=== PATIENT | female | born 1965 | race Caucasian/White ===

== ENCOUNTER 2017-03-01 13:25 | Outpatient (CLI) | payer OTHER ==
[~2017-03-01] VITALS: Ht 152.4 cm; Wt 70.0 kg
[2017-03-01 13:45] VITALS: Ht 152.4 cm; Wt 70.0 kg
[2017-03-01 13:46] VITALS: BP 120/66; PULSE 77; RESP 16
--- NOTE | 2017-03-01 17:29 | CONS ---
DATE OF ADMISSION: 03/01/2017 DATE OF CONSULTATION: 03/01/2017 [facility] INITIAL OUTPATIENT CONSULTATION NOTE PLACE OF SERVICE: [facility] at [facility]. REFERRING PHYSICIAN: Alphonso Broussard MD. Dear Dr. Broussard: Thank you very much for allowing us to participate in the care of this very pleasant lady and her wo nderful family. REASON FOR CONSULTATION: Hepatic mass. HISTORY OF PRESENT ILLNESS: The patient is a very pleasant 51-year-old lady with a few comorbiditie s including BMI of 30, who was diagnosed with transaminitis of the liver in 07/2016. She was seen t hrough the Emergency Department at [facility] with abdominal discomfort and workup demo nstrated possible inflamed gallbladder. Two days later she was hospitalized at [facility] for 12 days with jaundice where her total bilirubin was as high as 5.2 (on 08/01/2016). Note that a t that time, her AST was 1489 and her ALT was 1448, alkaline phosphatase was 140 and her INR was 1.1 . A right upper quadrant ultrasound was done on 08/01/2016 that showed normal sized liver and echog enicity without focal mass or intrahepatic biliary dilatation. An 8 mm echogenic focus was found ne ar the gallbladder neck and the common bile duct was measured at 3 mm. There was also a 1.3 cm roun ded hypoechoic structure mentioned in the head of the pancreas. The spleen was thought to be normal and there was no ascites. On 08/04/2016 further laboratory testing was done where AMA was negative , JACK was negative, ASMA was negative and ceruloplasmin was 27. IgG was 1565 and GGT was 249. Acut e hepatitis panel was negative along with HIV test. Iron saturation was 21% and SLA was 1.8. Urina lysis was normal. On 08/29/2016 Her bilirubin was normalized at 1.1 and AST, ALT were coming down i n the 6 to 800 range and elevation in alkaline phosphatase was noted at 234. By 10/17/2016 the ling ent's bilirubin was 1.5, AST 88, ALT 82, alkaline phosphatase 96, albumin 3.8, INR 1, IgG-4 greater than 300 and CEA level was 1.3. Diagnosis of autoimmune hepatitis versus cholangiopathy was enterta ined. There was also question of medication related hepatitis, but no clear etiology was found. On 11/17/2016, her IgG-4 was found to be 258.9. During the July hospitalization a liver biopsy was don e which showed portal fibrosis and marked hepatic reaction with multifocal confluent necrosis. This biopsy result was sent to [facility] and Dr. Jewell reviewed the findings with the conclusion of portal fib rosis and marked hepatic reaction with multifocal confluent necrosis. Again, autoimmune etiology ve rsus drug induced process should be considered. On followup images, which included a CT scan of the abdomen with and without IV contrast on 12/16/19 17 (not liver dedicated) there was a low density lesion at the liver dome that measured 4 cm and a b ackground what was called cirrhotic liver. Spleen was measured at 13.8 cm. Multiple jocelyn hepatis lymph nodes were found, which were nonspecific in the setting of liver cirrhosis and no evidence of ascites was found. The patient was kindly sent to us for further evaluation. During my visit with the patient, she described having mainly flank type pain which seems to have become better over the last 3 or 4 months. She never had any problems with her liver or pancreas in the past. One of her brothers did have liver difficulties but per report, he was a heavy alcohol abuser. The patient her self does not abuse alcohol and she has not had any difficulties with pancreatitis or gallbladder is sues in the past. She did not report any episodes of nausea or vomiting, fevers or chills, difficul ty with blood in the stool or urine, issues with diarrhea or constipation, or other major findings. COMORBIDITIES: 1. BMI 30.1. 2. Diagnosis of systemic lupus erythematosus, unspecified (unclear whether this is a new diagnosis or she had this diagnosis from the past, no mention by the patient or family). 3. Insomnia. 4. Depression. 5. Hearing problem, unspecified. 6. Melena intermittently (again the patient did not mention this herself). 7. Deformity of the left hand since . 8. Gallbladder polyp diagnosed in 07/2016. 9. Skin lesions. 10. Pyuria. 11. Mass on pancreas reported on the ultrasound in 07/2016 but not seen on subsequent [address] sca ns of the abdomen and pelvis. 12. Blood transfusion in 1992. 13. Appendectomy in 1992. 14. Breast biopsy in 2012. ALLERGIES: NO KNOWN DRUG ALLERGIES. MEDICATIONS: Carefully recorded and reviewed in the electronic health record system. REVIEW OF SYSTEMS: Other than the above-mentioned, there are no other major pertinent positives or pertinent negatives in a complete 14-point review of systems. There are some issues with difficulty in frequency with urination and dysuria. There is also a history of hemorrhoids and some difficult y with learning. SOCIAL HISTORY: The patient lives with her family. She has 5 children. She was born in [facility]. She is a homemaker. She occasionally drinks alcohol. Does not smoke and never used intravenous drug use. There is a history of blood transfusion in 1992. FAMILY HISTORY: The patient's brother with alcoholic cirrhosis or liver difficulties as mentioned a angelita. There is no mention of other major medical, surgical or oncologic problems in the family. PHYSICAL EXAMINATION: GENERAL: The patient appears to be a very pleasant lady of descent, appearing st ated age, sitting in a chair comfortably and in no acute distress. BMI is 30.1. VITAL SIGNS: Normal. HEENT: Her head is normocephalic and atraumatic. Her extraocular muscles and hearing are grossly i ntact bilaterally and symmetrically. Her sclerae are nonicteric. Her oral cavity is clear and her oral mucosa appeared to be pink and moist. Her dentition is fair. NECK: Supple. There is no lymphadenopathy or JVD. There is no submental, submandibular or supracl avicular lymphadenopathy. CHEST: Rises symmetrically with each breath, and she is breathing comfortably. There are no audibl e wheezes, rales or rhonchi on the gross exam. Her pulses are palpable in her neck bilaterally and symmetrically. Radial pulses also palpable on the right wrist. There is no pitting edema around th e ankles bilaterally and symmetrically. ABDOMEN: Soft, nondistended but somewhat protuberant and nontender. There is no evidence of organo megaly, caput medusae, engorged subcutaneous veins, or ascites. There are no peritoneal signs or gu arding. SKIN: Appears to be pink and feels warm to touch. NEUROLOGIC: She is awake, alert, and follows commands appropriately. LABORATORY VALUES: Extensively reviewed above. IMAGING: Reviewed above. Note that I personally reviewed all the available images and I agree in g eneral with their overall reported findings. Of additional note is the hyperemic uterus that was no gladys in the CT done in 07/2016, but no mention of it in the rest of the reports and the other exams t hat we have available do not image the pelvis itself. IMPRESSION AND PLAN: A very pleasant 51-year-old lady with a rather interesting picture of hepatiti s of unknown etiology, perhaps autoimmune related or medication related with a mass that appears to have come about within a 4 month period, from July to December of 2016. Interestingly, there was a bi opsy that was done in July and raises a question whether there was a post-biopsy complication such as hemorrhage or biloma or other infectious etiologies that created the mass versus a DeNovo process. The patient's risk factors for cirrhosis are minimal, but they do include steatosis given her eleva gladys body mass index and potential autoimmune etiology. The pathology report does not mention any ov ert evidence of cirrhosis and there is no obvious cirrhotic image to her liver and no evidence of as cites. I do agree that the spleen is larger than what would be expected. She also does not show an y evidence of the metabolic syndromes associated with a malignant process including no mention of we ight loss or other typical symptoms. The differential includes benign processes such as postbiopsy complications of infection or biloma o r hemorrhage. It would be virtually impossible to have focal nodular hyperplasia or other such lesi ons within a short period of time in 4 months since we have a contrast CT scan in July which is of fa irly good quality. I doubt that this lesion was missed on those images. The differential unfortuna tely also includes aggressive malignant processes, which should be considered. Her tumor markers ar e not available to me at this time and they should be checked. It would be important for us to imag e her with a liver dedicated CT scan to get a better understanding of the natural history of this pr ocess and I am hopeful that the new images will show resolution of the liver mass in which case, no further testing would need to be done for the images. If the mass is present or particularly if the re is increase in size of this region, then a biopsy would be indicated. I have also recommended a multidisciplinary tumor board presentation. Note that if the patient requires surgical excision of this region, I believe that there is enough reason to go ahead with this aggressive move should it b e deemed necessary. I explained all of the above to the patient and her daughter and answered all t heir questions. The patient and family appeared to understand and agreed with plans. With above assessments I have recommended the followin. Liver-dedicated triple phase CT scan of abdomen and pelvis with particular attention paid to the liver as well as reevaluation of the pelvis to image her uterus and compare it to the images from 07/2016. 2. Tumor markers including alpha fetoprotein, repeat check of CEA, CA 19-9 and CA-125. 3. Multidisciplinary tumor board presentation. 4. Consideration for liver biopsy if indicated by above. 5. Follow up with us after above. 6. Continue search for source of hepatitis. 7. A healthier lifestyle with the goal of bringing the BMI between 24 and 18. Thank you again for allowing us to participate in the very interesting case of this very pleasant la dy and her wonderful family. If there are any questions, please feel free to contact me at . Nature of presenting problem high risk. Complexity of decision making high complexity. Dictated By: HODA VEGAS/DERICK Conf#: [id number] DID#: [id number] CC: Aarti HINSON; Margarette Parry MD;*EndCC*
== END 2017-03-01 17:00 | disposition home or self-care (01) ==
LOC: HPC 13:25
PROVIDERS: ATTEND Transplant Surgery
DX: R16.0 Hepatomegaly, not elsewhere classified (principal); K75.9 Inflammatory liver disease, unspecified; M32.9 Systemic lupus erythematosus, unspecified; F32.9 Major depressive disorder, single episode, unspecified; G47.00 Insomnia, unspecified; H93.299 Other abnormal auditory perceptions, unspecified ear
CPT/HCPCS: G0463

== ENCOUNTER 2017-04-26 14:37 | Outpatient (CLI) | END 2017-04-26 17:00 | disposition home or self-care (01) ==